=== PATIENT | female | born 1955 | race Caucasian/White ===

== ENCOUNTER 2017-09-26 11:10 | Emergency (ER) | payer MEDICAID ==
[2017-09-26 12:29] LABS: APPEARANCE,URINE CLEAR; BILIRUBIN,URINE NEGATIVE (NEGATIVE); COLOR,URINE YELLOW; GLUCOSE, URINE NEGATIVE (NEGATIVE); KETONES,URINE NEGATIVE (NEGATIVE); LEUKOCYTE ESTERASE,URINE TRACE (NEGATIVE); NITRITE,URINE NEGATIVE (NEGATIVE); PROTEIN,URINE NEGATIVE (NEGATIVE); URINE SPECIFIC GRAVITY 1.008; UROBILINOGEN,URINE NEGATIVE mg/dL (<2.0)
--- NOTE | 2017-09-26 12:45 | ER Document Report ---
ED GI/ - General Chief Complaint: Pain With Urination Stated Complaint: PAINFUL URINATION Time Seen by Provider: 09/26/17 11:20 Mode of Arrival: Ambulatory Information source: Patient Notes: Patient is a 62-year-old female who presents to the ER today for burning with urination that started yesterday. Patient denies any abdominal pain, low back pain, fevers or chills. She states that her urine was very dark today and is usually clear or light yellow. She denies seeing any blood in it. TRAVEL OUTSIDE OF THE [place] IN LAST 30 DAYS: No - Related Data Allergies/Adverse Reactions: acetaminophen [From Tylenol] Allergy (Verified 09/26/17 11:11) amlodipine besylate [From Norvasc] Allergy (Verified 09/26/17 11:11) aspirin Allergy (Verified 09/26/17 11:11) cephalexin [From Keflex] Allergy (Verified 09/26/17 11:11) ciprofloxacin [From Cipro] Allergy (Verified 09/26/17 11:11) ciprofloxacin HCl [From Cipro] Allergy (Verified 09/26/17 11:11) Past Medical History - General Information source: Patient - Social History Smoking Status: Current Every Day Smoker Chew tobacco use (# tins/day): No Frequency of alcohol use: None Drug Abuse: None Family History: Reviewed & Not Pertinent Patient has suicidal ideation: No Patient has homicidal ideation: No - Past Medical History Cardiac Medical History: Reports: Hx Hypercholesterolemia, Hx Hypertension Denies: Hx Atrial Fibrillation, Hx Congestive Heart Failure, Hx Coronary Artery Disease, Hx Heart Attack, Hx Peripheral Vascular Disease, Hx Pulmonary Embolism, Hx Heart Murmur Pulmonary Medical History: Reports: Hx Bronchitis, Hx COPD, Hx Pneumonia Denies: Hx Asthma, Hx Respiratory Failure, Hx Sleep Apnea, Hx Tuberculosis Neurological Medical History: Reports: Hx Migraine, Hx Seizures Endocrine Medical History: Denies: Hx Diabetes Mellitus Type 2 - hypo Renal/ Medical History: Denies: Hx End Stage Renal Disease, Hx Kidney Stones, Hx Ovarian Cysts, Hx Peritoneal Dialysis, Hx Pelvic Inflammatory Disease Malignancy Medical History: Denies: Hx Breast Cancer, Hx Cervical Cancer, Hx Leukemia, Hx Lung Cancer, Hx Ovarian Cancer GI Medical History: Reports: Hx Gastroesophageal Reflux Disease, Hx Ulcer. Denies: Hx Crohn's Disease, Hx Hiatal Hernia, Hx Irritable Bowel, Hx Liver Failure, Hx Pancreatitis Musculoskeltal Medical History: Reports Hx Arthritis, Reports Hx Fibromyalgia, Denies Hx Multiple Sclerosis, Denies Hx Muscular Dystrophy Psychiatric Medical History: Reports: Hx Anxiety, Hx Depression, Hx Post Traumatic Stress Disorder Denies: Hx Bipolar Disorder, Hx Schizophrenia Traumatic Medical History: Reports: Hx Fractures Infectious Medical History: Denies: Hx HIV Past Surgical History: Reports: Hx Appendectomy, Hx Hysterectomy. Denies: Hx Bowel Surgery, Hx Section, Hx Cholecystectomy, Hx Colostomy, Hx Coronary Artery Bypass Graft, Hx Gastric Bypass Surgery, Hx Herniorrhaphy, Hx Mastectomy, Hx Pacemaker, Hx Tonsillectomy, Hx Tubal Ligation - Immunizations Hx Diphtheria, Pertussis, Tetanus Vaccination: No - pt unsure Review of Systems - Review of Systems Constitutional: No symptoms reported EENT: No symptoms reported Cardiovascular: No symptoms reported Respiratory: No symptoms reported Gastrointestinal: No symptoms reported Genitourinary: See HPI Female Genitourinary: No symptoms reported Musculoskeletal: No symptoms reported Skin: No symptoms reported Hematologic/Lymphatic: No symptoms reported Neurological/Psychological: No symptoms reported Physical Exam - Vital signs Vitals: Temp Pulse Resp BP Pulse Ox 98.7 F 80 16 136/71 H 100 09/26/17 11:17 09/26/17 11:17 09/26/17 11:17 09/26/17 11:17 09/26/17 11:17 - Notes Notes: PHYSICAL EXAMINATION: GENERAL: Well-appearing and in no acute distress. HEAD: Atraumatic, normocephalic. EYES: Pupils equal round and reactive to light, extraocular movements intact, sclera anicteric, conjunctiva are normal. NECK: Normal range of motion, supple without lymphadenopathy LUNGS: CTAB and equal. No wheezes rales or rhonchi. HEART: Regular rate and rhythm without murmurs ABDOMEN: Soft, no tenderness. No guarding, no rebound BACK: no vertebral tenderness, normal ROM GI/: no CVA tenderness EXTREMITIES: Normal range of motion, no pitting edema. No cyanosis. NEUROLOGICAL: Cranial nerves grossly intact. Normal sensory/motor exams. PSYCH: Normal mood, normal affect. SKIN: Warm, Dry, normal turgor, no rashes or lesions noted Course - Re-evaluation Re-evalutation: 09/26/17 16:24 Patient has trace leuks on urinary urinalysis today. Patient will be placed on Macrobid and Pyridium for symptoms of UTI. - Vital Signs Vital signs: Temp Pulse Resp BP Pulse Ox 97.9 F 78 16 120/86 H 97 09/26/17 12:55 09/26/17 12:55 09/26/17 12:55 09/26/17 12:55 09/26/17 12:55 - Laboratory Laboratory results interpreted by me: 09/26/17 11:56 Urine Blood SMALL H Ur Leukocyte Esterase TRACE H Discharge - Discharge Clinical Impression: UTI (urinary tract infection) Qualifiers: Urinary tract infection type: acute cystitis Hematuria presence: with hematuria Qualified Code(s): N30.01 - Acute cystitis with hematuria Condition: Stable Disposition: HOME, SELF-CARE Instructions: Nitrofurantoin ([facility]), Urinary Tract Infection ([facility]) Additional Instructions: Return immediately for any new or worsening symptoms. Follow up with primary care provider, call tomorrow to make followup appointment. Drink plenty of fluids. Prescriptions: Nitrofurantoin Monohyd/M-Cryst [Macrobid 100 mg Capsule] 100 mg PO BID #10 capsule Omeprazole 20 mg PO DAILY #30 tablet. Phenazopyridine HCl [Pyridium 100 Mg Tablet] 100 mg PO TID PRN #15 tablet PRN Reason:
[2017-09-26 13:05] VITALS: BP 120/86
== END 2017-09-26 13:05 | disposition home or self-care (01) ==
LOC: ER 11:10
DX: N30.01 Acute cystitis with hematuria (principal); R30.9 Painful micturition, unspecified; F17.200 Nicotine dependence, unspecified, uncomplicated
CPT/HCPCS: 81001; 99283

== ENCOUNTER → 2018-01-03 | Outpatient (CLI) | payer MEDICAID ==
--- NOTE | 2018-01-04 14:32 | WOMENS IMAGING REPORT ---
EXAM DESCRIPTION: 3D SCREENING MAMMO BILAT COMPLETED DATE/TIME: 01/03/2018 3:54 pm REASON FOR STUDY: ROUTINE SCREENING;Z12.31 Z12.31 ENCNTR SCREEN MAMMOGRAM FOR MALIGNANT NEOPLASM OF MINH COMPARISON: 2008 TECHNIQUE: Standard craniocaudal and mediolateral oblique views of each breast recorded using digita l acquisition and breast tomosynthesis. LIMITATIONS: None. FINDINGS: No masses, calcifications or architectural distortion. No areas of suspicion. Read with the assistance of CAD. .[facility] - R2 Cenova Version 1.3 .[facility] - R2 Cenova Version 1.[address] .[facility] - R2 Cenova Version 2.4 .[facility] - R2 Cenova Version 2.4 .[facility] - R2 Butadiene Converter Utility Operator Version 9.2 IMPRESSION: NORMAL MAMMOGRAM. BIRADS 1. BREAST DENSITY: b. There are scattered areas of fibroglandular density. BIRAD: 1 NEGATIVE RECOMMENDATION: ROUTINE SCREENING COMMENT: The patient has been notified of the results by letter per SA requirements. Additional no tification policies are in place for contacting patient with suspicious or incomplete findings. Quality ID #[id number]: The [employer] recommends an annual screening mammogram for women aged 40 years or over. This facility utilizes a reminder system to ensure that all patients receive reminder letters, and/or direct phone calls for appointments. This includes reminders for routine scr eening mammograms, diagnostic mammograms, or other Breast Imaging Interventions when appropriate. Th is patient will be placed in the appropriate reminder system. The [employer] (ACR) has developed recommendations for screening MRI of the breast s in certain patient populations, to be used in conjunction with mammography. Breast MRI surveillanc e may be appropriate for women with more than 20% lifetime risk of developing breast cancer as deter mined by genetic testing, significant family history of the disease, or history of mantle radiation f or Hodgkins Disease. ACR Practice Guidelines 2008. DBT Technology DBT is a type of tomographic mammography. With conventional mammography, overlapping breast tissue ma y make lesions difficult to detect, even with good compression. DBT uses an x-ray tube that rotates a round the breast, taking images at different angles. These images are then combined to create thin sl ices of the breast that the radiologist can view as a 3D reconstruction. The Covocative unit can perform full-field digital mammograms (2D imaging); or DBT (3D imaging); or both, in a combination mode that quickly performs both the mammogram and the tomosynthesis scan while the breast is still compressed. PQRS 6045F: Fluoroscopic imaging is not utilized for breast tomosynthesis. TECHNICAL DOCUMENTATION: FINDING NUMBER: (1) ASSESSMENT: (1) JOB ID: [id number] [employer]- All Rights Reserved Reading location - IP/workstation name: [email or web address]
== END ==
LOC: WI 15:19
PROVIDERS: ATTEND Nurse Practitioner
DX: Z12.31 Encounter for screening mammogram for malignant neoplasm of breast (principal)
CPT/HCPCS: 77063; 77067

== ENCOUNTER → 2018-02-02 | Outpatient (CLI) | payer MEDICAID ==
--- NOTE | 2018-02-02 16:12 | RADIOLOGY REPORT (SQ) ---
EXAM DESCRIPTION: KNEE LEFT 4 VIEWS COMPLETED DATE/TIME: 02/02/2018 3:58 pm REASON FOR STUDY: PAIN IN LEFT KNEE M25.562 PAIN IN LEFT KNEE COMPARISON: None. NUMBER OF VIEWS: Four views. TECHNIQUE: AP, lateral, and both oblique radiographic images acquired of the left knee. LIMITATIONS: None. FINDINGS: There is mild narrowing of the medial compartment joint space. No osteophytes or chondroc alcinosis. No effusion. IMPRESSION: Early osteoarthritis. TECHNICAL DOCUMENTATION: JOB ID: [id number] [employer]- All Rights Reserved Reading location - IP/workstation name: [email or web address]
== END ==
LOC: OD 15:25
PROVIDERS: ATTEND Nurse Practitioner
DX: M25.562 Pain in left knee (principal); G89.29 Other chronic pain; M17.12 Unilateral primary osteoarthritis, left knee

== ENCOUNTER 2018-05-01 12:39 | Emergency (ER) | payer MEDICAID ==
[2018-05-01 12:50] VITALS: BP 152/81
--- NOTE | 2018-05-01 13:10 | ER Document Report ---
HPI - HPI Patient complains to provider of: Right lateral ankle sore Onset: Other - 5 weeks Pain Level: 1 Context: 63-year-old female felt a itch and a burn to her right lateral ankle 5 weeks ago when she rubbed her left foot over it and when she looked down she had skin that was abraded off the area. Since then it is been healing slowly but is worried because there is some rash around it and crusting and wondering why it is not healed yet. Associated Symptoms: None Exacerbated by: Denies Relieved by: Denies Similar symptoms previously: No Recently seen / treated by doctor: No - ROS ROS below otherwise negative: Yes Systems Reviewed and Negative: Yes All other systems reviewed and negative - REPRODUCTIVE Reproductive: DENIES: : Past Medical History - General Information source: Patient - Social History Smoking Status: Never Smoker Frequency of alcohol use: None Drug Abuse: None Lives with: Family Family History: Reviewed & Not Pertinent - Past Medical History Cardiac Medical History: Reports: Hx Hypercholesterolemia, Hx Hypertension Pulmonary Medical History: Reports: Hx Bronchitis, Hx COPD, Hx Pneumonia Neurological Medical History: Reports: Hx Migraine, Hx Seizures GI Medical History: Reports: Hx Gastroesophageal Reflux Disease, Hx Ulcer Musculoskeletal Medical History: Reports Hx Arthritis, Reports Hx Fibromyalgia Psychiatric Medical History: Reports: Hx Anxiety, Hx Depression, Hx Post Traumatic Stress Disorder Traumatic Medical History: Reports: Hx Fractures Past Surgical History: Reports: Hx Appendectomy, Hx Hysterectomy - Immunizations Hx Diphtheria, Pertussis, Tetanus Vaccination: No - pt unsure Vertical Provider Document - CONSTITUTIONAL Agree With Documented VS: Yes Exam Limitations: No Limitations - INFECTION CONTROL TRAVEL OUTSIDE OF THE [place] IN LAST 30 DAYS: No - DERM Integumentary: Rash - Dried dermatitis ( pt used neosporin and it made the area itch) is healing and the original lesion is crusted 5 mm lesion posterior right ankle. There is no lymphangitis or pus. She states it is getting smaller since the original wound Course - Vital Signs Vital signs: Temp Pulse Resp BP Pulse Ox 98.7 F 62 16 152/81 H 97 05/01/18 12:48 05/01/18 12:48 05/01/18 12:48 05/01/18 12:48 05/01/18 12:48 Discharge - Discharge Clinical Impression: Right ankle healing abrasion, Dermatitis due to neomycin Condition: Good Disposition: HOME, SELF-CARE Instructions: Abrasions ([facility]), Contact Dermatitis ([facility]) Additional Instructions: Keep the area covered with Vaseline or bacitracin and a nonstick dressing as the skin heals See your primary care doctor for follow-up Expect this wound to completely heal within a month if it does not she need to see a gauntlet pairer Stop the triple antibiotic ointment which caused the itchy rash Referrals: DIVYA YEBOAH NP [Primary Care Provider] - Follow up as needed
== END 2018-05-01 13:45 | disposition home or self-care (01) ==
LOC: ER 12:39
DX: S90.511D Abrasion, right ankle, subsequent encounter (principal); X58.XXXD Exposure to other specified factors, subsequent encounter; L25.1 Unspecified contact dermatitis due to drugs in contact with skin; T49.0X5A Adverse effect of local antifungal, anti-infective and anti-inflammatory drugs, initial encounter
CPT/HCPCS: 99282

== ENCOUNTER 2018-10-18 21:14 | Emergency (ER) | payer MEDICAID ==
[2018-10-19] MEDS ORDERED: CLINDAMYCIN HCL 150 MG CAPSULE PO ONE (01:21)
--- NOTE | 2018-10-19 01:27 | ER Document Report ---
HPI - HPI Patient complains to provider of: Foot rash Time Seen by Provider: 10/18/18 23:26 Pain Level: 2 Context: Patient is a 63-year-old female presents to the emergency department complaining of generalized rash, burning sensation to bilateral lower feet bilateral toes for the last month. Patient states the pain has slowly been getting worse. States initially she presented to her primary care provider who told her she potentially had athlete's foot. States she was using miconazole and now has been using triamcinolone all prescribed by her primary care provider. Patient states she presents to the emergency department this evening because the erythema had gotten bad she feels as though they are infected. Patient denies any history of diabetes, neuropathy. Past medical history COPD, hypertension Medications: Metoprolol, Ativan Allergies: Cipro, aspirin, Tylenol, Keflex - CONSTITUTIONAL Constitutional: DENIES: Fever, Chills - REPRODUCTIVE Reproductive: DENIES: : - MUSCULOSKELETAL Musculoskeletal: REPORTS: Extremity pain - noth feet toes Past Medical History - General Information source: Patient - Social History Smoking Status: Never Smoker Chew tobacco use (# tins/day): No Frequency of alcohol use: None Drug Abuse: None Family History: Reviewed & Not Pertinent Patient has suicidal ideation: No Patient has homicidal ideation: No - Past Medical History Cardiac Medical History: Reports: Hx Hypercholesterolemia, Hx Hypertension Denies: Hx Atrial Fibrillation, Hx Congestive Heart Failure, Hx Coronary Artery Disease, Hx Heart Attack, Hx Peripheral Vascular Disease, Hx Pulmonary Embolism, Hx Heart Murmur Pulmonary Medical History: Reports: Hx Bronchitis, Hx COPD, Hx Pneumonia Denies: Hx Asthma, Hx Respiratory Failure, Hx Sleep Apnea, Hx Tuberculosis Neurological Medical History: Reports: Hx Migraine, Hx Seizures Endocrine Medical History: Denies: Hx Diabetes Mellitus Type 2 - hypo Renal/ Medical History: Denies: Hx End Stage Renal Disease, Hx Kidney Stones, Hx Ovarian Cysts, Hx Peritoneal Dialysis, Hx Pelvic Inflammatory Disease Malignancy Medical History: Denies: Hx Breast Cancer, Hx Cervical Cancer, Hx Leukemia, Hx Lung Cancer, Hx Ovarian Cancer GI Medical History: Reports: Hx Gastroesophageal Reflux Disease, Hx Ulcer. Denies: Hx Crohn's Disease, Hx Hiatal Hernia, Hx Irritable Bowel, Hx Liver Failure, Hx Pancreatitis Musculoskeletal Medical History: Reports Hx Arthritis, Reports Hx Fibromyalgia, Denies Hx Multiple Sclerosis, Denies Hx Muscular Dystrophy Psychiatric Medical History: Reports: Hx Anxiety, Hx Depression, Hx Post Traumatic Stress Disorder Denies: Hx Bipolar Disorder, Hx Schizophrenia Traumatic Medical History: Reports: Hx Fractures Infectious Medical History: Denies: Hx HIV Past Surgical History: Reports: Hx Appendectomy, Hx Hysterectomy. Denies: Hx Bowel Surgery, Hx Section, Hx Cholecystectomy, Hx Colostomy, Hx Coronary Artery Bypass Graft, Hx Gastric Bypass Surgery, Hx Herniorrhaphy, Hx Mastectomy, Hx Pacemaker, Hx Tonsillectomy, Hx Tubal Ligation - Immunizations Hx Diphtheria, Pertussis, Tetanus Vaccination: No - pt unsure Vertical Provider Document - CONSTITUTIONAL Agree With Documented VS: Yes Notes: GENERAL: Alert, interacts well. No acute distress. HEAD: Normocephalic, atraumatic. EYES: Pupils equal, round, and reactive to light. Extraocular movements intact. ENT: Oral mucosa moist, tongue midline. NECK: Full range of motion. Supple. Trachea midline. LUNGS: Clear to auscultation bilaterally, no wheezes, rales, or rhonchi. No respiratory distress. HEART: Regular rate and rhythm. No murmur ABDOMEN: Soft, non-tender. Non-distended. Bowel sounds present in all 4 quadrants. EXTREMITIES: Moves all 4 extremities spontaneously. No edema, normal radial and dorsalis pedis pulses bilaterally. No cyanosis. BACK: no cervical, thoracic, lumbar midline tenderness. No saddle anesthesia, normal distal neurovascular exam. NEUROLOGICAL: Alert and oriented x3. Normal speech. PSYCH: Normal affect, normal mood. SKIN: Warm, dry, normal turgor. Erythema noted all 5 toes on bilateral lower extremity. Capillary refill less than 2 seconds all 5 toes bilaterally. No areas of fluctuance or induration noted. Patient does have full range of motion. - INFECTION CONTROL TRAVEL OUTSIDE OF THE [place] IN LAST 30 DAYS: No Course - Re-evaluation Re-evalutation: 10/19/18 01:27 Discussed with patient at length at bedside that she needs to follow-up with a family reunification specialist. Discussed using prophylactic antibiotics in case this is an early cellulitis. Patient is agreeable with plan and stable for discharge. - Vital Signs Vital signs: Temp Pulse Resp BP Pulse Ox 98.1 F 86 14 156/93 H 99 10/18/18 21:44 10/18/18 21:44 10/18/18 21:44 10/18/18 21:44 10/18/18 21:44 Discharge - Discharge Clinical Impression: Cellulitis Qualifiers: Site of cellulitis: extremity Site of cellulitis of extremity: toe Laterality: unspecified laterality Qualified Code(s): L03.039 - Cellulitis of unspecified toe Condition: Stable Disposition: HOME, SELF-CARE Instructions: Cellulitis ([facility]) Additional Instructions: As we discussed I think the lesions to your bilateral feet could potentially be infected. Please take antibiotics as prescribed. Please also follow-up with a family reunification specialist. Phone number will be provided in this packet. Please return to the emergency room for any other concerning symptoms. Prescriptions: Clindamycin HCl 450 mg PO TID 7 Days capsule Referrals: DIVYA YEBOAH NP [Primary Care Provider] - Follow up as needed JANELLE WILLETT DPM [ACTIVE STAFF] - Follow up as needed
[2018-10-19 01:38] VITALS: BP 144/87
== END 2018-10-19 01:39 | disposition home or self-care (01) ==
LOC: ER 21:14
DX: L03.039 Cellulitis of unspecified toe (principal); R21 Rash and other nonspecific skin eruption; J44.9 Chronic obstructive pulmonary disease, unspecified; I10 Essential (primary) hypertension; Z79.899 Other long term (current) drug therapy
CPT/HCPCS: 99282; J3490

== ENCOUNTER → 2019-01-05 | Outpatient (CLI) | payer MEDICAID ==
--- NOTE | 2019-01-07 10:55 | XCELERA REPORT ---
[address] [address] Tel: [phone] Fax: [phone] Lower Extremity Arterial Evaluation Name: DIRK PONCE Age: 63 yrs Gender: Female : 1955 Patient Status: Outpatient Patient Location: [facility] Study Date: 01/05/2019 04:45 PM Procedure: Ankle brachial indicies performed. Reason For Study: BLE PAIN Ordering Physician: DIVYA YEBOAH Performed By: Gulshan Abraham Right Side Arterial Evaluation LENNIE in Posterior Tibial:1.08. Multiphasic waveform. Left Side Arterial Evaluation LENNIE in Posterior Tibial:1.02. Multiphasic waveform. Interpretation Summary Normal LENNIE's. Suggesting normal arterial system, within the limitations of this technique. : DIVYA YEBOAH > Cornelius Martinez
== END ==
LOC: SP 14:09
PROVIDERS: ATTEND Nurse Practitioner
DX: M79.604 Pain in right leg (principal); M79.605 Pain in left leg
CPT/HCPCS: 93922